=== PATIENT | female | born 1950 | race Caucasian/White ===

== ENCOUNTER 2021-11-24 11:33 | Observation (INO) ==
[2021-11-24 14:54] VITALS: BP 116/64; PULSE 58; TEMP 98.4; O2SAT 96
[2021-11-24] MEDS ORDERED: Naloxone 0.4 MG/ML INJ IVP PRN (15:47)
[2021-11-24] MEDS ORDERED: Melatonin 3 MG TABLET PO PRN (15:47)
[2021-11-24] MEDS ORDERED: *HR* Heparin 5,000 UNIT/ML VIAL SQ SCH (18:00)
[2021-11-24] MEDS ORDERED: Ranolazine 500 MG TAB.ER.12H PO SCH (21:00)
[2021-11-25] MEDS ORDERED: amLODIPine 5 MG TABLET PO SCH (09:00)
[2021-11-25] MEDS ORDERED: Aspirin 81 MG TAB.CHEW PO SCH (09:00)
== END 2021-11-24 17:16 | disposition home or self-care (01) ==
LOC: 3BNU → SUATTDRO 14:37
PROVIDERS: ADMIT Family Medicine; ATTEND Nurse Practitioner